=== PATIENT | male | born 1960 | race Caucasian/White ===

== ENCOUNTER 2016-06-07 15:00 | Inpatient (IN) | payer SELFPAY ==
[2016-06-07] MEDS ORDERED: SODIUM CHLORIDE 0.9% 1000ML 1,000 ML ONE (15:46)
[2016-06-07] MEDS ORDERED: SODIUM CHLORIDE 0.9% 1000ML 1,000 ML IVS ONE (15:46)
[2016-06-07] MEDS ORDERED: IPRATROPIUM/ALBUTEROL 3 ML VIAL NEB ONE (15:48)
--- NOTE | 2016-06-07 16:23 | ED.PDOC ---
History of Present Illness - General Chief Complaint: Respiratory Problem Stated Complaint: Difficulty Breathing, Fever x 4 days Time Seen by Provider: 06/07/16 16:15 Source: patient Exam Limitations: no limitations Additional Information: PT C/O SOB AND COUGH PAST 2-3 DAYS. HAD FEVER THIS AM WENT TO HIS PCP'S WHO SENT HIM TO ER CONCERNED ABOUT POSSIBLE SEPSIS. - History of Present Illness Timing/Duration: other - 3 DAYS Severity: moderate Improving Factors: nothing Worsening Factors: nothing Associated Symptoms: cough, shortness of breath Allergies/Adverse Reactions: Allergies NO KNOWN ALLERGY Allergy (Verified 06/07/16 15:13) Review of Systems - Review of Systems Constitutional: States: chills, fever, other - NIGHT SWEATS EENTM: Denies: blurred vision, ear pain, throat pain, throat swelling Respiratory: States: cough, short of breath, wheezing, other - PROD BROWN SPUTUM Cardiology: Denies: chest pain, palpitations Gastrointestinal/Abdominal: Denies: abdominal pain, nausea, vomiting Genitourinary: States: no symptoms reported Musculoskeletal: States: no symptoms reported Skin: States: other - SWEATING. Denies: change in color, dryness, lesions Neurological: States: no symptoms reported Endocrine: States: no symptoms reported Hematologic/Lymphatic: States: no symptoms reported Past Medical History (General) - Patient Medical History Hx Stroke: No Hx Congestive Heart Failure: No Hx Hypertension: Yes Hx Diabetes: No - Vaccination History Hx Tetanus, Diphtheria Vaccination: Yes Hx Influenza Vaccination: No Hx Pneumococcal Vaccination: No Immunizations Up to Date: Yes - Social History Hx Tobacco Use: No Hx Chewing Tobacco Use: No Hx Alcohol Use: No Hx Substance Use: No Hx Substance Use Treatment: No Hx Depression: No Feels Threatened In Home Enviroment: No Feels Threatened In a Relationship: No Hx Physical Abuse: No Hx Emotional Abuse: No Hx Suspected Abuse: No Family Medical History - Family History Grandparents Family History: Unknown Physical Exam - Physical Exam General Appearance: Alert, Other - MILD RESP DISTRESS, APPEARS NOT TO FEEL WELL. Eye Exam: bilateral normal Ears, Nose, Throat: hearing grossly normal, normal ENT inspection Neck: full range of motion, supple, normal inspection Respiratory: other - O2 SATS 88% ON RA, HYPOXIC Cardiovascular/Chest: regular rate, rhythm, no murmur Gastrointestinal/Abdominal: normal bowel sounds, non tender, no organomegaly Back Exam: normal inspection, no CVA tenderness Extremity: normal range of motion, normal inspection Neurologic: alert, normal mood/affect Skin Exam: normal color, warm/dry, diaphoresis Lymphatic: no adenopathy Progress - EKG/XRAY/CT XRAY: chest - RML PNEUMONIA Departure - Departure Clinical Impression: Hypoxemia Right middle lobe pneumonia Qualifiers: Pneumonia type: due to Pneumococcus Qualifier Code: (J13) Pneumonia due to Streptococcus pneumoniae Hypertension Qualifiers: Hypertension type: essential hypertension Qualifier Code: (I10) Essential ( primary) hypertension Time of Disposition: 17:04 - D/W [facility]ALON, WILL ADMIT Disposition: Discharge to Home or Self Care Condition: Good Departure Forms: ED Discharge - Pt. Copy, Patient Portal Self Enrollment
--- NOTE | 2016-06-07 16:32 | RAD ---
EXAM DESCRIPTION: XR CHEST 1 VIEW CLINICAL HISTORY: Wheezing COMPARISON: None Available. TECHNIQUE: Frontal chest radiograph. FINDINGS: Normal heart size. Right upper lobe patchy interstitial alveolar infiltrate consistent with pneumonia. Slight fullness of the right hilum and paratracheal region could be reactive lymph node enlargement or vascular structures. Left lung is clear No pleural effusion. No pneumothorax No acute bony abnormality IMPRESSION: Right upper lobe infiltrate/pneumonia. Recommend follow up until clearing Electronically signed by: Good Garcia MD 06/07/2016 16:30
[2016-06-07] MEDS ORDERED: AZITHROMYCIN IV 500 MG in SODIUM CHLORIDE 0.9% 250ML 250 ML IVPB ONE (16:50)
[2016-06-07] MEDS ORDERED: cefTRIAXone SODIUM 1 GM in SODIUM CHL 0.9% 50ML MIN-BAG+ 50 ML IVPB ONE (16:50)
[2016-06-07] MEDS ORDERED: cefTRIAXone SODIUM 1 GM VIAL ONE (17:06)
[2016-06-07] MEDS ORDERED: SODIUM CHL 0.9% 50ML MIN-BAG+ 50 ML IVPB ONE (17:06)
[2016-06-07] MEDS ORDERED: SODIUM CHLORIDE 0.9% 250ML 250 ML ONE (17:42)
[2016-06-07] MEDS ORDERED: AZITHROMYCIN IV 500 MG VIAL IVPB ONE (17:42)
--- NOTE | 2016-06-07 17:46 | HP ---
SUPERVISING PHYSICIAN: Phillip Billings MD CHIEF COMPLAINT: Fever, severe shortness of breath. HISTORY OF PRESENT ILLNESS: Mr. Ro is a 55-year-old, male patient who was referred from [facility] for complaint of fever for 4 days with severe shortness of breath and cough. There was concern for possible sepsis given the patient had temperature of 103 and also of note was that multiple family members had been treated for flu within the last week. The patient notes he had been trying the last few days starting on Monday to work his way through his symptoms and was unable to sleep and was actually having to sit in a chair to breathe to the point where today he presented in severe respiratory distress initially. In the Emergency Department, his initial vital signs showed temperature 102.7, heart rate 111, blood pressure 165/93. He was showing labored respirations of 22 to 24 with 88% saturation on room air. Laboratory studies showed a leukocytosis of 14.9 with a left shift. Influenza antigen testing was negative for both A and B. Chest x-ray was completed and per radiology interpretation there is indication of a right upper lobe patchy interstitial infiltrate consistent with pneumonia. Given the patient's severity of symptoms including shortness of breath, purulent productive cough, fever, leukocytosis and exposure to influenza within the last week and radiographic studies indicating right upper lobe pneumonia, the patient is to be admitted to the Medical/Surgical Floor for definitive treatment and further evaluation. In the Emergency Department, he was initially given breathing treatments. Blood cultures were completed. Rocephin and azithromycin were administered. He was admitted to the Medical/Surgical Floor in stable condition. PAST MEDICAL HISTORY: 1. Hypertension. PAST SURGICAL HISTORY: 1. Left lens implant. CURRENT MEDICATIONS: 1. Benazepril 40 mg daily. ALLERGIES: NO KNOWN DRUG ALLERGIES. FAMILY HISTORY: Noncontributory. SOCIAL HISTORY: He denies ever smoking. He drinks on rare occasion. He is self-employed as a contract pumper. He is and lives in [place], [place]. REVIEW OF SYSTEMS: CONSTITUTIONAL: He notes chills, fever and night sweats for the last 4 nights. HEENT: Denies any blurred vision, ear pain, sore throat, or throat swelling. RESPIRATORY: Positive for cough with productive sputum that is brown in purulent in nature with severe shortness of breath and wheezing. CARDIOVASCULAR: Denies chest pain or palpitations. Denies syncopal episodes. GASTROINTESTINAL: Denies nausea or vomiting. No abdominal pain or diarrhea. GENITOURINARY: Denies dysuria, hematuria, or other urinary symptoms. MUSCULOSKELETAL: Notable for general malaise. INTEGUMENT: Significant for diaphoresis associated with fever. NEUROLOGIC: Denies syncopal episodes, headaches, but he does have some sleep disturbance secondary to hypoxia and severe respiratory efforts. PHYSICAL EXAMINATION: VITAL SIGNS: Temperature on admission was 102.7. Pulse 111. Blood pressure 165/93. Respirations 22. O2 saturation initially 88% on room air. After breathing treatment, was 90% to 94% on nasal cannula at 2 liters at rest. Admission weight 102.9 kg. GENERAL: The patient is alert, but he is in obvious mild distress with a very productive cough and not feeling well with a fever. HEENT: Tympanic membranes clear bilaterally. Oropharynx is pink, moist without any lesions. Nares are clear. There is no nasal congestion, no drainage. NECK: No jugular venous distention noted. CHEST: Initial O2 saturations were 80% to 88% on room air with noted hypoxia and some mild respiratory distress utilizing purse-lipped breathing at 20 to 24. Lungs sounds are severely diminished on the right with very notable rhonchi and expiratory and inspiratory wheezing, more notable on the right with the left being fairly clear, but diminished towards the bases. CARDIOVASCULAR: Regular rate and rhythm without any appreciable murmurs, gallops, or rubs. ABDOMEN: Obese, but oft, nontender. Positive bowel sounds. EXTREMITIES: There is no cyanosis, clubbing or edema. NEUROLOGIC: The patient is alert and oriented times three. LABORATORY: White count shows leukocytosis at 14.9, hemoglobin 13.5, hematocrit 40.2, platelet count 137,000, differential did show a left shift. Coagulation studies within normal limits except for slightly elevated PT of 14.8. D-dimer was negative at less than 230. Chemistries showed a low sodium of 130 and low patient of 3.4. Carbon dioxide within normal limits at 24. BUN 11, creatinine 0.86, glucose 189, magnesium low at 1.6, calcium 8.6. CPK slightly elevated at 272. All other liver functions within normal limits. Troponin less than 0.02 with BNP 45.6. Urine showed dipstick within normal limits. Microscopic showed 2+ bacteria with a large amount of mucus, but no WBCs, no epithelial cells and no RBCs. MICROBIOLOGY: Sputum culture pending. Urine culture pending. Influenza type A and B antigen rapid swabs were negative for both A and B. Blood cultures pending. RADIOLOGY: Chest x-ray per radiology interpretation prior to admission indicated a right upper lobe interstitial infiltrate consistent with pneumonia. ASSESSMENT: 1. Acute right upper lobe pneumonia likely community acquired and likely secondary to previous viral infection with exposure to influenza A and B with the patient being febrile with productive cough. Sputum is pending. Indication on initial assessment to be hypoxic with O2 sats showing 80% on room air. 2. Leukocytosis secondary to #1. 3. Electrolyte imbalance with mild hypokalemia, hyponatremia, and hypomagnesemia, likely secondary to current complications of pneumonia. 4. Questionable urinary tract infection with urine culture pending. 5. History of hypertension. PLAN: The patient will be admitted to the Medical/Surgical Floor for treatment of right upper lobe pneumonia complicated possibly by influenza viral infection. Given the patient's condition, he was started on Rocephin and azithromycin as well as I will start him on antiviral to include Tamiflu given he did have exposure to family members positive for flu. He will be provided aggressive pulmonary hygiene to include q.i.d. DuoNeb treatments, p.r.n. albuterol treatments, and CPT. He will be started on DVT prophylaxis per protocol. I will replace his magnesium IV in efforts to restore magnesium levels as well as to help improve his respiratory efforts. He will be started on Mucinex to help with normalization of sputum. Anticipate length of stay to be 2 to 3 days. We will reevaluate laboratory studies in the morning. Until discharge, we will continue to monitor the patient closely and treat appropriately. #[id number] [facility]
[2016-06-07] MEDS ORDERED: methylPREDNISolone SODIUM SUC 125 MG/2 ML VIAL IV ONE (19:00)
[2016-06-07] MEDS: IPRATROPIUM/ALBUTEROL 3 ML VIAL NEB SCH (19:00)
[2016-06-07] MEDS ORDERED: ALBUTEROL SULFATE 2.5 MG/3 ML VIAL NEB PRN (19:01)
[2016-06-07] MEDS ORDERED: IPRATROPIUM BROMIDE NEBS 0.5 MG/2.5 ML VIAL NEB ONE (19:02)
[2016-06-07] MEDS ORDERED: MAGNESIUM SULFATE PREMIX 2GM 2 GM in PREMIX BAG 1 BAG IVPB ONE (19:06)
[2016-06-07] MEDS ORDERED: MAGNESIUM SULFATE PREMIX 2GM 50 ML IVPB ONE (19:16)
[2016-06-07] MEDS: KCL 40MEQ/NS 1,000 ML IVS PRN (19:24)
[2016-06-07] MEDS ORDERED: SODIUM CHLORIDE 0.9% (FLUSH) 10 ML SYG IV PRN (19:25)
[2016-06-07] MEDS ORDERED: IV SET AND CAP CHANGE INJ INJ SCH (19:30)
[2016-06-07] MEDS ORDERED: IBUPROFEN 400 MG TAB PO PRN (19:31)
[2016-06-07] MEDS ORDERED: ACETAMINOPHEN 325 MG TAB PO PRN (19:31)
[2016-06-07] MEDS ORDERED: cloNIDine HCL 0.1 MG TAB PO ONE (20:07)
--- NOTE | 2016-06-07 20:10 | PCM.CORE ---
Physician DVT/VTE - Nurse DVT Assessment & Total Each Risk Factor Represents 3 Points: Medical PT with Hx of CO, CHF, Severe infection/sepsis Each Risk Factor Represents 1 Point: Age 41-60 Each Risk Factor is 1 Point: Obesity (BMI >25), Serious Lung disease (pnemonia < 1month, COPD, emphysema,etc) DVT Assessment Score: 6 - 5 or more Very High Risk Treatments: Early Ambulation *, Sequential Compression Device Pharmacological: Enoxaparin 40mg SQ Daily
[2016-06-07] MEDS ORDERED: ENOXAPARIN SODIUM 40 MG/0.4 ML SYG SUBCU SCH (20:30)
[2016-06-07] MEDS: OSELTAMIVIR 75 MG CAP PO SCH (20:31)
[2016-06-07] MEDS: NON-FORMULARY MEDICATION 1 EA MIS (Benazepril Hcl [Benazepril Hcl] 40 MG) PO SCH (20:31)
[2016-06-08] MEDS ORDERED: SODIUM CHL 0.9% 50ML MIN-BAG+ 50 ML IVPB ONE ×3 (01:21→19:40)
[2016-06-08] MEDS ORDERED: cefTRIAXone SODIUM 1 GM VIAL ONE ×3 (01:21→19:40)
[2016-06-08] MEDS: methylPREDNISolone SODIUM SUC 125 MG/2 ML VIAL IV SCH ×2 (01:54→08:13)
[2016-06-08] MEDS: cefTRIAXone SODIUM 1 GM in SODIUM CHL 0.9% 50ML MIN-BAG+ 50 ML IVPB SCH ×2 (05:24→18:08)
--- NOTE | 2016-06-08 08:02 | RAD ---
EXAM DESCRIPTION: XR CHEST 2 VIEWS CLINICAL HISTORY: 55 y/o M, Pneumonia COMPARISON: 06/07/2016. TECHNIQUE: Two views of the chest FINDINGS: There is right upper lobe airspace opacity. The left lung is clear. The heart is normal in size. There is no pneumothorax or pleural effusion. The bones are unremarkable IMPRESSION: Right upper lobe pneumonia. Electronically signed by: Fermin Avery MD 06/08/2016 08:00
[2016-06-08] MEDS ORDERED: GLUCAGON INJ 1 MG VIAL SUBCU PRN (08:49)
[2016-06-08] MEDS ORDERED: DEXTROSE 50% 25 GM/50 ML SYG IV PRN (08:49)
[2016-06-08] MEDS: IPRATROPIUM/ALBUTEROL 3 ML VIAL NEB SCH ×3 (09:05→21:14)
[2016-06-08] MEDS: OSELTAMIVIR 75 MG CAP PO SCH ×2 (09:26→20:48)
[2016-06-08] MEDS: NON-FORMULARY MEDICATION 1 EA MIS (Benazepril Hcl [Benazepril Hcl] 40 MG) PO SCH (09:29)
[2016-06-08] MEDS: KCL 40MEQ/NS 1,000 ML IVS PRN ×2 (11:33→11:42)
[2016-06-08] MEDS: INSULIN LISPRO 100 UNITS/ML PEN SUBCU SCH ×5 (11:41→21:04)
[2016-06-08] MEDS ORDERED: SODIUM CHLORIDE 0.9% 250ML 250 ML ONE (17:35)
[2016-06-08] MEDS ORDERED: AZITHROMYCIN IV 500 MG VIAL IVPB ONE (17:36)
[2016-06-08] MEDS: metFORMIN HCL 500 MG TAB PO SCH (18:06)
[2016-06-08] MEDS: AZITHROMYCIN IV 500 MG in SODIUM CHLORIDE 0.9% 250ML 250 ML IVPB SCH (18:46)
[2016-06-08] MEDS ORDERED: ENOXAPARIN SODIUM 40 MG/0.4 ML SYG SUBCU ONE (19:40)
[2016-06-08] MEDS ORDERED: LORazepam 0.5 MG TAB ONE (19:41)
[2016-06-08] MEDS: LORazepam 0.5 MG TAB PO SCH (20:47)
[2016-06-08] MEDS: SODIUM CHLORIDE 0.9% (FLUSH) 10 ML SYG IV SCH (20:47)
[2016-06-08] MEDS: ENOXAPARIN SODIUM 40 MG/0.4 ML SYG SUBCU SCH (20:49)
--- NOTE | 2016-06-08 21:29 | PN ---
DATE: 06/08/16 SUPERVISING PHYSICIAN: Phillip Billings M.D. SUBJECTIVE: The patient is doing well today. He has actually been able to ambulate without oxygen at times. His cough is still persistent but he is much less short of breath. He has been running a low-grade fever with T max being 99.4. OBJECTIVE: VITAL SIGNS: Temperature 99.4 T max, pulse 88, blood pressure 155/85 , respirations 20, satting 92% on nasal cannula at rest. I's and O's show a positive balance of 828 with 2028 in, 1200 out. Weight is 100.6 kg. GENERAL: The patient looks much better today. He remains alert and oriented. He is in much less distress. Breathing much easier and actually was able to rest through the night. I did give him 0.1 of Ativan at bedtime. CHEST: Lungs are showing much better aeration today but remains very coarse with some rhonchi and faint wheezing heard more so on the right than the left. HEART: Regular rate and rhythm. ABDOMEN: Soft, non-tender. Positive bowel sounds. EXTREMITIES: No clubbing, cyanosis or edema. NEUROLOGIC: He is alert and oriented times three. LABORATORY: White count did go up to 18.3 with the differential showing 91% neutrophils with the patient having been started on corticosteroids as well. Hemoglobin and hematocrit are stable at 13.9 and 41.7 with a platelet count of147,000. Chemistries show to be within normal limits with potassium 4.3, magnesium 1.6. He was given 2 grams of magnesium IV. Glucose this morning was 353 after being started on corticosteroids. Hemoglobin A1c was 7.9. Sputum culture is pending. Urine culture shows no growth at 24 hours. Blood cultures remain negative at 24 hours. RADIOLOGY: Chest x-ray today 2 view per radiology interpretation shows right upper lobe pneumonia. ASSESSMENT: 1. Acute right upper lobe pneumonia likely community acquired and likely secondary to previous viral infection with previous exposure to Influenza A and B with the patient being febrile with a productive cough. Sputum is pending. The patient initially on assessment was hypoxic on O2 satting showing 80% on room air showing improvement after starting on parenteral antibiotics and breathing treatments. He was also started on Tamiflu. 2. Leukocytosis showing a slight increase likely secondary to number 1 as well as complicated by corticosteroid administration. 3. Electrolyte imbalance with mild hypokalemia, hyponatremia and hypomagnesemia secondary to complications of pneumonia showing resolution after treatment and IV therapy. 4. Possible urinary tract infection, however urine culture shows no growth at 24 hours with the patient being asymptomatic. 5. History of hypertension with poor control. 6. Diabetes type newly diagnosed with hemoglobin A1c of 7.9 complicated currently by corticosteroid administration. PLAN: The patient shows improvement right now. At this point, will continue with his antivirals to include Tamiflu as well as parenteral antibiotics to include Rocephin and Azithromycin, and closely monitor. He continues with aggressive pulmonary hygiene. Given that his hemoglobin A1c was elevated and he has elevated blood sugars, I started him on Metformin 500 mg b.i.d. as well as start him on a sliding scale with a.c. coverage of 5 units. He will need close monitoring of his blood sugars and certainly will need to go home with Metformin and close followup in the [facility], and close monitoring of his diet and advised to lose some weight. He has been ambulating and is encouraged to do so and utilize his IS. Will await sputum cultures to further target antibiotic therapy. Should he continue to show clinical improvement, will continue with current antibiotic therapy. However, should his clinical condition show any decline, certainly will warrant adding additional antibiotic therapy to include likely Levaquin for the concern of the possibility of a Streptococcus pneumoniae. Will stop his corticosteroids today as he is not showing any significant wheezing and is showing improvement, and monitor closely. Anticipate at least another 24 to 48 hours of parenteral antibiotic therapy. Until then, will continue to monitor the patient closely and treat appropriately. #[id number] [facility]
[2016-06-09] MEDS: cefTRIAXone SODIUM 1 GM in SODIUM CHL 0.9% 50ML MIN-BAG+ 50 ML IVPB SCH ×2 (04:50→17:44)
[2016-06-09] MEDS ORDERED: cefTRIAXone SODIUM 1 GM VIAL ONE (05:55)
[2016-06-09] MEDS ORDERED: SODIUM CHL 0.9% 50ML MIN-BAG+ 50 ML IVPB ONE (05:55)
[2016-06-09] MEDS ORDERED: SODIUM CHLORIDE 0.9% 250ML 250 ML ONE (05:56)
[2016-06-09] MEDS ORDERED: AZITHROMYCIN IV 500 MG VIAL IVPB ONE ×2 (05:56)
--- NOTE | 2016-06-09 06:59 | RAD ---
EXAM DESCRIPTION: XR CHEST 2 VIEWS CLINICAL HISTORY: 55 y/o M, pneumonia COMPARISON: 06/08/2016. TECHNIQUE: Two views of the chest. FINDINGS: There is overall improvement of the right upper lobe airspace opacity. The left lung is clear. The heart size is stable. There is no pneumothorax or pleural effusion. The bones are unchanged. IMPRESSION: Improvement of the airspace opacity in the right upper lobe. Electronically signed by: Fermin Avery MD 06/09/2016 06:56
[2016-06-09] MEDS: INSULIN LISPRO 100 UNITS/ML PEN SUBCU SCH ×7 (07:56→21:15)
[2016-06-09] MEDS: metFORMIN HCL 500 MG TAB PO SCH ×2 (07:57→17:40)
[2016-06-09] MEDS: IPRATROPIUM/ALBUTEROL 3 ML VIAL NEB SCH ×5 (08:07→20:39)
[2016-06-09] MEDS: NON-FORMULARY MEDICATION 1 EA MIS (Benazepril Hcl [Benazepril Hcl] 40 MG) PO SCH (08:53)
[2016-06-09] MEDS: OSELTAMIVIR 75 MG CAP PO SCH ×2 (08:56→21:00)
[2016-06-09] MEDS: SODIUM CHLORIDE 0.9% (FLUSH) 10 ML SYG IV SCH ×2 (08:56→21:00)
[2016-06-09] MEDS ORDERED: methylPREDNISolone SODIUM SUC 125 MG/2 ML VIAL IV ONE (17:09)
[2016-06-09] MEDS: AZITHROMYCIN IV 500 MG in SODIUM CHLORIDE 0.9% 250ML 250 ML IVPB SCH (18:27)
--- NOTE | 2016-06-09 20:45 | PN ---
DATE: 06/09/16 SUPERVISING PHYSICIAN: Good Nolasco M.D. SUBJECTIVE: The patient is sitting up in his hospital bed. He is eating. He complains of shortness of breath and coughing. Denies any palpitations, chest pain, abdominal pain, nausea or vomiting. He is also worried about his diabetes as he knows that he has had it for over a year now and says that he occasionally has problems with numbness in his feet and toes. He states he would really like to go home but he becomes very short of breath with any kind of exertion. OBJECTIVE: VITAL SIGNS: He is afebrile, pulse rate 79, heart rate 100, blood pressure 139/81, respiratory rate 20, O2 sats are 92% on 2 liters nasal cannula. GENERAL: This is a 55 year-old male patient who is sitting in his hospital bed. He is in no acute distress. RESPIRATORY: Bilateral rhonchi diffusely throughout all lung agarwal. He does have some expiratory wheezing on the right upper and middle lobes. CARDIAC: Regular rate and rhythm. ABDOMEN: Soft, nondistended, non-tender. Bowel sounds are positive. EXTREMITIES: No clubbing, cyanosis or edema. NEUROLOGIC: He is awake, alert and oriented times three. LABORATORY: WBCs are 20.5, hemoglobin 12.9, hematocrit 39.4, platelets 178. BUN 24, glucose 241. Sputum cultures are still pending. Chest x-ray shows improvement of the airspace opacity in the right upper lobe. All other labs and films have been reviewed via the EMR. ASSESSMENT: 1. Acute right upper lobe pneumonia most likely community acquired and also secondary to previous viral infection as he had been exposed to family members with Influenza A and B. The patient was febrile with a productive cough on admission. His sputum is pending. 2. Leukocytosis that again shows a slight increase that is most likely secondary to the pneumonia as well as complicated by corticosteroid administration. 3. Electrolyte imbalance that is now improved. 4. Newly diagnosed diabetes mellitus with a hemoglobin A1c of 7.9. 5. History of hypertension with poor control. 6. Question urinary tract infection with a negative urine culture growth at 24 hours. PLAN: We will continue present antibiotic therapy. He had also received only 1 dose of corticosteroids so I have added some IV steroids tonight and will start him on p.o. sternoids tomorrow, and he will need a taper of Prednisone when he goes home. He will need an ambulatory study tomorrow to see how he tolerates activity. He also will need further diabetic education and close followup with Kelsea Tripp at [facility]. He needs good pulmonary toilet and to increase his activity. We will hopefully discharge him home tomorrow on oral antibiotics as well as a Prednisone taper. We will continue to monitor the patient closely and followup as needed. Dr. Nolasco is the supervising physician available for consultation. #[id number] [facility] CENTERRashmi
[2016-06-09] MEDS: LORazepam 0.5 MG TAB PO SCH (21:00)
[2016-06-09] MEDS: ENOXAPARIN SODIUM 40 MG/0.4 ML SYG SUBCU SCH (21:00)
[2016-06-10] MEDS ORDERED: cefTRIAXone SODIUM 1 GM VIAL ONE ×2 (04:52→07:07)
[2016-06-10] MEDS ORDERED: SODIUM CHL 0.9% 50ML MIN-BAG+ 0 ML IVPB ONE (04:52)
[2016-06-10] MEDS: cefTRIAXone SODIUM 1 GM in SODIUM CHL 0.9% 50ML MIN-BAG+ 50 ML IVPB SCH (04:58)
--- NOTE | 2016-06-10 06:29 | RAD ---
EXAM DESCRIPTION: XR CHEST 2 VIEWS CLINICAL HISTORY: 55 y/o M, pna COMPARISON: 06/09/2016. TECHNIQUE: Two views of the chest. FINDINGS: There is a persistent right upper lobe airspace opacity. The left lung is clear. The heart size is stable. There is no pneumothorax or pleural effusion. The bones are unchanged. IMPRESSION: Right upper lobe pneumonia. Electronically signed by: Fermin Avery MD 06/10/2016 06:28
[2016-06-10] MEDS ORDERED: SODIUM CHL 0.9% 50ML MIN-BAG+ 50 ML IVPB ONE (07:07)
[2016-06-10] MEDS ORDERED: SODIUM CHLORIDE 0.9% 250ML 0 ML ONE (07:07)
[2016-06-10] MEDS ORDERED: AZITHROMYCIN IV 500 MG VIAL IVPB ONE (07:08)
[2016-06-10] MEDS: INSULIN LISPRO 100 UNITS/ML PEN SUBCU SCH ×6 (07:17→16:57)
[2016-06-10] MEDS: metFORMIN HCL 500 MG TAB PO SCH ×2 (07:18→17:00)
[2016-06-10] MEDS: NON-FORMULARY MEDICATION 1 EA MIS (Benazepril Hcl [Benazepril Hcl] 40 MG) PO SCH (08:34)
[2016-06-10] MEDS: OSELTAMIVIR 75 MG CAP PO SCH (08:34)
[2016-06-10] MEDS: SODIUM CHLORIDE 0.9% (FLUSH) 10 ML SYG IV SCH (08:36)
[2016-06-10] MEDS ORDERED: predniSONE 20 MG TAB PO SCH (09:00)
[2016-06-10] MEDS: IPRATROPIUM/ALBUTEROL 3 ML VIAL NEB SCH ×3 (09:15→16:48)
[2016-06-10] MEDS ORDERED: DOXYCYCLINE HYCLATE CAP 100 MG CAP PO SCH (09:30)
[2016-06-10] MEDS ORDERED: SULFA/TRIMETH 800/160 (DS) TAB 1 EA TAB PO SCH (09:30)
[2016-06-10 10:24] VITALS: TEMP 98.5
[2016-06-10 14:31] VITALS: BP 145/70
--- NOTE | 2016-06-10 15:35 | DS ---
SUPERVISING PHYSICIAN: Good Nolasco M.D. DISCHARGE DIAGNOSIS: 1. Acute right upper lobe pneumonia most likely community acquired and also secondary to previous viral infection as he has been exposed to family members with Influenza A and B. The patient was febrile with a productive cough on admission. His sputum culture is positive for Staphylococcus aureus. 2. Leukocytosis that is most likely secondary to pneumonia as well as complicated by corticosteroid administration. 3. Electrolyte imbalance that is now improved. 4. Newly diagnosed diabetes mellitus with hemoglobin A1c of 7.9. 5. History of hypertension with poor control. 6. Questionable urinary tract infection with negative urine culture growth at 24 hours. HISTORY OF PRESENT ILLNESS: This is a 55 year-old male patient who was sent to the Emergency Room from [facility] for complaint of fever for 4 days with severe shortness of breath and cough. There was concern for possible sepsis given the patient had a temperature of 103. It was to be noted that multiple family members have been treated for positive flu within the last week. He had been trying to work through his symptoms but they worsened to the point that he actually had to sit in a chair to breathe and he had to go to [facility] today in severe respiratory distress. His initial vital signs in the Emergency Room showed a temperature of 102.7, heart rate 111 , blood pressure 165/93. He had labored respirations around 24 with 88% oxygen saturation that dropped to the low 80s on room air. Initial laboratory studies showed leukocytosis of 14.9 with a left shift. His Influenza antigen specimen was negative for both A and B, but he had been exposed to family members with positive flu. Radiographic studies showed a right upper lobe pneumonia and the patient was admitted to the floor for treatment. He was given breathing treatments and blood cultures were done. Rocephin and Azithromycin were administered. HOSPITAL COURSE: During his stay, he progressed slowly in spite of steroid administration and he continued to have a very purulent sputum that was sent off for results. He had 1 positive blood culture that showed Staphylococcus aureus. It was resistant to both Ceftriaxone and Azithromycin. He had initially received steroids but they were tapered off, but he had to have an additional dosing of IV steroids on the day prior to discharge, and today he was changed to p.o. Bactrim as well as p.o. Doxycycline which both showed sensitivity on his blood culture. He was also started on p.o. prednisone today. He has been ambulating in the halls without problems today and has been without oxygen for 24 hours. At this point, I believe he is ready to be discharged with close followup with [facility] and AGUSTINA Lopez. DISCHARGE PLAN: The patient will be discharged home in stable condition. He has a followup appointment with Kelsea Tripp on Monday. He will have 10 days of Bactrim and Doxycycline. I will also start him on a steroid taper. His had picked up a nebulizer machine and he will be started on b.i.d. Albuterol as well as every 4 hours p.r.n. treatments. He has been advised to take Mucinex 600 mg b.i.d. for at least a month and if he has congestion, he can increase it to 1200 b.i.d. I have also given him a glucometer and he is to check his blood sugars a.c. and h.s. until he sees Kelsea. At that time, she can give him a schedule for his blood sugar checks. He was put on Metformin 500 b.i.d. in the hospital and I increased it to 1,000 b.i.d. He would also benefit from a sleep study. We have talked extensively about his diabetes as well as his pulmonary rehabilitation after having pneumonia. It is also to be noted that he did come in with some hemoptysis with a right upper lobe pneumonia. He has also complained of night sweats throughout his stay and that could be due to the febrile illness, but he also has had some coughing too that has been going on for several weeks. He may warrant having a TB test at his followup appointment. He is to start a diabetic diet. He is to return to [facility] or the hospital if there are any further complications. Dr. Nolasco is the supervising physician available for consultation. DISCHARGE MEDICATIONS: 1. Benazepril. 2. Glucophage XR 1,000 mg b.i.d. 3. Albuterol sulfate nebulizer treatments. 4. Doxycycline 100 mg p.o. b.i.d. times 10 days. 5. Prednisone 10 mg, 12 day taper starting at 40 mg daily times 3 days and tapering down. 6. Bactrim DS 1 tab b.i.d. times 10 days. #[id number] ADDENDUM: (Please refer to [facility] lab results for detailed description of final sputum results.) Basically, sputum results show normal orpharyngeal heaven. May need TB skin testing and/or AFB culture. MTDD
[2016-06-10 17:48] VITALS: O2SAT 93
== END 2016-06-10 17:42 | disposition home or self-care (01) | DRG 153 ==
LOC: ER 15:00 → MS 17:44
PROVIDERS: ADMIT Nurse Practitioner Family; ATTEND Nurse Practitioner Acute Care
DX: J11.1 Influenza due to unidentified influenza virus with other respiratory manifestations (principal); E87.0 Hyperosmolality and hypernatremia; N39.0 Urinary tract infection, site not specified; J18.9 Pneumonia, unspecified organism; I10 Essential (primary) hypertension; E11.9 Type 2 diabetes mellitus without complications; E87.6 Hypokalemia; E83.42 Hypomagnesemia; E66.9 Obesity, unspecified; Z79.899 Other long term (current) drug therapy; Z68.32 Body mass index [BMI] 32.0-32.9, adult

== ENCOUNTER → 2018-03-07 | Outpatient (CLI) | payer OTHER ==
--- NOTE | 2018-03-08 13:19 | US ---
US THYROID CLINICAL STATEMENT: NODULE. COMPARISON: None FINDINGS: Size right thyroid lobe: 7.8 x 3.2 x 2.9 cm Size left thyroid lobe: 5.5 x 2.5 x 2.1 cm Size isthmus: 0.44 cm Estimated total number of nodules greater than or equal to 1 cm: 4. Heterogeneous thyroid bilaterally and in the isthmus. Increased vascularity in the right lobe. Nodule 1: Size: 2.6 x 2.0 x 1.6 cm Location: Right Upper Composition: solid or almost completely solid: 2 points Echogenicity: hypoechoic: 2 points Shape: wider than tall: 0 points Margins: ill-defined: 0 points Echogenic foci: large comet tail artefact: 0 points. Posterior aspect. ACR Total Points: 4; ACR TI-RADS risk category: TR4 - moderately suspicious nodule. Nodule 2: Size: 1.5 x 1.5 x 0.1 cm Location: Right Mid Composition: solid or almost completely solid: 2 points Echogenicity: isoechoic: 1 point Shape: wider than tall: 0 points Margins: smooth: 0 points Echogenic foci: none: 0 points ACR Total Points: 3; ACR TI-RADS risk category: TR3 - mildly suspicious nodule. Nodule 3: Size: 1.8 x 1.8 x 1.6 cm Location: Left Lower Composition: solid or almost completely solid: 2 points Echogenicity: isoechoic: 1 point Shape: wider than tall: 0 points Margins: ill-defined: 0 points Echogenic foci: none: 0 points ACR Total Points: 3; ACR TI-RADS risk category: TR3 - mildly suspicious nodule. Nodule 4: Size: 1.2 x 1.1 x 0.7 cm Location: Left Upper Composition: solid or almost completely solid: 2 points Echogenicity: hypoechoic: 2 points Shape: wider than tall: 0 points Margins: smooth: 0 points Echogenic foci: none: 0 points ACR Total Points: 4; ACR TI-RADS risk category: TR4 - moderately suspicious nodule. The included soft tissue shows no distinct cystic or solid mass. No abnormal vascularity. No large calcification or parenchymal edema. No overlying skin changes. IMPRESSION: 1. Nodule 1: ACR TI-RADS 2017 Category 4. Recommend: Ultrasound-guided fine needle aspiration . Please see ACR TI-RADS 2017 recommendations below.* 2. Nodule 2: ACR TI-RADS 2017 Category 3. Recommend: Follow-up ultrasound in 1 year. 3. Nodule 3: ACR TI-RADS 2017 Category 3. Recommend: Follow-up ultrasound in 1 year. 4. Nodule 4: ACR TI-RADS 2017 Category 4. Recommend: Follow-up ultrasound in 1 year. Soft tissue surrounding the thyroid gland is unremarkable. *ACR TI-RADS 2017 Recommendations: TR1: No FNA or follow up TR2: No FNA or follow up TR3: FNA if >/= 2.5 cm, follow up if 1.5 - 2.4 cm in 1, 3, and 5 years TR4: FNA if >/= 1.5 cm, follow up if 1.0 - 1.4 cm in 1, 2, 3, and 5 years TR5: FNA if >/= 1.0 cm, follow up if 0.5 - 0.9 cm every year for 5 years ACR TI-RADS recommends that no more than two nodules with the highest ACR TI-RADS total point should be biopsied and no more than four nodules should be followed. Electronically signed by: Gus Alas MD 03/08/2018 1:18 PM CDT
== END ==
LOC: US 12:01
PROVIDERS: ATTEND Family Medicine
DX: E04.1 Nontoxic single thyroid nodule (principal)

== ENCOUNTER → 2018-04-03 | Outpatient (CLI) | payer SELFPAY | LOC: LAB.O 15:31 | PROVIDERS: ATTEND Family Medicine | DX: E04.1 Nontoxic single thyroid nodule (principal) ==

== ENCOUNTER → 2019-02-05 | Outpatient (CLI) | payer OTHER | LOC: LAB.O 08:54 | PROVIDERS: ATTEND Family Medicine | DX: E11.9 Type 2 diabetes mellitus without complications (principal) ==

== ENCOUNTER → 2019-10-29 | Outpatient (CLI) | payer OTHER | LOC: LAB.O 11:15 | PROVIDERS: ATTEND Family Medicine | DX: E11.9 Type 2 diabetes mellitus without complications (principal) ==

== ENCOUNTER → 2020-01-28 | Outpatient (CLI) | payer MEDICARE | LOC: LAB.O 12:00 | PROVIDERS: ATTEND Family Medicine | DX: I10 Essential (primary) hypertension (principal); E04.1 Nontoxic single thyroid nodule; Z12.5 Encounter for screening for malignant neoplasm of prostate; Z13.220 Encounter for screening for lipoid disorders; E11.9 Type 2 diabetes mellitus without complications | CPT/HCPCS: 36415; 80053; 80061; 81001; 83036; 84439; 84443; 84481; 85025; G0103 ==

== ENCOUNTER → 2020-02-24 | Outpatient (CLI) | payer MEDICARE ==
--- NOTE | 2020-02-24 16:41 | US ---
US THYROID CLINICAL STATEMENT:59 years Male GOITER. COMPARISON: None TECHNIQUE: Transcutaneous scanning, grayscale and Doppler modes. FINDINGS: Size right thyroid lobe: 5.3 x 2.5 x 2.3 cm Size left thyroid lobe: 5.2 x 3.4 x 2.7 cm Size isthmus: 0.43 cm Estimated total number of nodules greater than or equal to 1 cm: 3. Nodule 1: Size: 2.6 x 2.5 x 1.7 cm Location: Left Upper Composition: solid or almost completely solid: 2 points Echogenicity: isoechoic: 1 point Shape: wider than tall: 0 points Margins: ill-defined: 0 points Echogenic foci: none: 0 points ACR Total Points: 3; ACR TI-RADS risk category: TR3 - mildly suspicious nodule. Nodule 2: Size: 2.5 x 2.1 x 2.0 cm Location: Left Lower Composition: solid or almost completely solid: 2 points Echogenicity: hypoechoic: 2 points Shape: wider than tall: 0 points Margins: smooth: 0 points Echogenic foci: macrocalcifications: 1 point ACR Total Points: 5; ACR TI-RADS risk category: TR4 - moderately suspicious nodule. Nodule 3: Size: 3.8 x 2.3 x 1.6 cm Location: Right Mid Composition: solid or almost completely solid: 2 points. Minimal vascularity. Echogenicity: hypoechoic: 2 points Shape: wider than tall: 0 points. Margins: Ill-defined. Echogenic foci: None. ACR Total Points: 4; ACR TI-RADS risk category: TR4 - moderately suspicious nodule. No dominant soft tissue mass, no distinct cyst, no fluid collection, no large calcifications in the surrounding soft tissues. IMPRESSION: 1. Nodule 1: ACR TI-RADS 2017 Category TR4. Recommend: Ultrasound-guided fine needle aspiration. Recommendations based upon [employer] Best [employer] recommendations and ACR TI-RADS 2017 guidelines. Please see below*. 2. Nodule 2: ACR TI-RADS 2017 Category TR4. Recommend: Ultrasound-guided fine needle aspiration 3. Nodule 3: ACR TI-RADS 2017 Category TR4. Recommend: Follow-up ultrasound in 1 year..*Note: Since this nodule contains more cystic components, fine-needle aspiration and sampling is deferred at this time 4. Soft tissue surrounding the thyroid gland is unremarkable. *ACR TI-RADS 2017 Recommendations for imaging follow-up of nodules (baseline study): TR1: No FNA or follow up TR2: No FNA or follow up TR3: FNA if >/= 2.5 cm, follow up if 1.5 - 2.4 cm in 1, 3, and 5 years TR4: FNA if >/= 1.5 cm, follow up if 1.0 - 1.4 cm in 1, 2, 3, and 5 years TR5: FNA if >/= 1.0 cm, follow up if 0.5 - 0.9 cm every year for 5 years ACR TI-RADS recommends that no more than two nodules with the highest ACR TI-RADS total point should be biopsied and no more than four nodules should be followed. These recommendations do not apply to patients with increased risk for thyroid cancer or patients with symptomatic thyroid disease. Electronically signed by: Gus Alas MD 02/24/2020 4:39 PM CDT
== END ==
LOC: US 09:44
PROVIDERS: ATTEND Internal Medicine
DX: E04.2 Nontoxic multinodular goiter (principal); Z68.33 Body mass index [BMI] 33.0-33.9, adult

== ENCOUNTER → 2020-03-19 | Outpatient (CLI) | payer MEDICARE ==
--- NOTE | 2020-03-21 06:09 | CT ---
EXAM DESCRIPTION: Soft Tissue Neck w/Contrast CLINICAL HISTORY: 59 years Male, MULTINODULAR GOITER TECHNIQUE: This exam was performed according to our departmental dose-optimization program, which includes automated exposure control, adjustment of the mA and/or kV according to patient size and/or use of iterative reconstruction technique. COMPARISON: February 24, 2020, August 30, 2009 FINDINGS: Visualized brain and orbits are unremarkable. The paranasal sinuses are clear. The airways patent. The trachea is midline. Similar multinodular thyroid goiter. Visualized lung apices are clear. No adenopathy. No focal fluid collection. No suspicious mass. The salivary glands are unremarkable. No acute or suspicious osseous abnormality. Scattered degenerative changes present. IMPRESSION: Multinodular thyroid goiter evaluated by ultrasound February 24, 2020. Electronically signed by: Jackson Chang MD 03/21/2020 6:07 AM CDT
== END ==
LOC: CT 14:08
PROVIDERS: ATTEND Surgery
DX: Z01.812 Encounter for preprocedural laboratory examination (principal); E04.2 Nontoxic multinodular goiter

== ENCOUNTER → 2020-04-06 | Outpatient (CLI) | payer MEDICARE | LOC: LAB.O 10:21 | PROVIDERS: ATTEND Otolaryngology | DX: E07.9 Disorder of thyroid, unspecified (principal) ==

== ENCOUNTER → 2020-04-14 | Outpatient (CLI) | payer MEDICARE ==
--- NOTE | 2020-04-15 10:05 | RAD ---
EXAM: Chest,2 Views INDICATION: 59 years Male, PREOP COMPARISON: 2 views of the chest 06/10/2016 FINDINGS: Two views of the chest were performed. Heart size is within normal limits. No pulmonary infiltrate or pleural effusion. No pneumothorax. The osseous structures are intact. Unremarkable appearance of the visualized upper abdomen. IMPRESSION: No evidence for acute cardiopulmonary process. Electronically signed by: Nela Salamanca MD 04/15/2020 10:04 AM [facility]
== END ==
LOC: RAD 12:47
PROVIDERS: ATTEND Family Medicine
DX: Z01.89 Encounter for other specified special examinations (principal)

== ENCOUNTER → 2020-06-16 | Outpatient (CLI) | payer MEDICARE | LOC: YCFC.O 13:14 | PROVIDERS: ATTEND Family Medicine | DX: Z90.09 Acquired absence of other part of head and neck (principal); E07.9 Disorder of thyroid, unspecified ==